=== PATIENT | female | born 2005 | race Two or more races ===

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

== ENCOUNTER 2025-07-03 00:02 | Emergency (ER) | payer BC, MEDICAID, OTHER ==
[~2025-07-03] VITALS: Ht 152.4 cm; Wt 52.2 kg
[2025-07-03] MEDS ORDERED: CEPH500T PO (00:24)
[2025-07-03 00:50] VITALS: BP 115/80; O2SAT 99
== END 2025-07-03 00:38 | disposition home or self-care (01) ==
LOC: ER 00:22
DX: S61.212A Laceration without foreign body of right middle finger without damage to nail, initial encounter (principal); Z88.7 Allergy status to serum and vaccine; W26.8XXA Contact with other sharp object(s), not elsewhere classified, initial encounter; Y93.89 Activity, other specified; Y92.89 Other specified places as the place of occurrence of the external cause; Y99.8 Other external cause status
CPT/HCPCS: A4606; A4663